=== PATIENT | female | born 1970 | race Caucasian/White ===

== ENCOUNTER 2023-06-29 21:22 | Inpatient (IN) | payer SELFPAY ==
[~2023-06-29] VITALS: Ht 165.1 cm; Wt 172.8 kg
[2023-06-30] MEDS ORDERED: KETOROLAC 60MG/2ML VIAL IM STA (01:00)
[2023-06-30] MEDS ORDERED: BACITRACIN ZINC OINT UDPKT TOP ONE (01:15)
[2023-06-30] MEDS ORDERED: T3 PO (03:54)
[2023-06-30] MEDS ORDERED: NAPR-681 PO (03:54)
[2023-06-30 08:09] LABS: CHLORIDE 109 mEq/L (98-107); INDEX HEMOLYSI 1 (1-3); INDEX ICTERIC 1 (1-4); INDEX LIPEMIC 1 (1-3); POTASSIUM 3.6 mEq/L (3.5-5.1); SODIUM 139 mEq/L (136-145)
[2023-06-30 08:21] LABS: ALANINE AMINOTRANSFERASE 32 IU/L (13-61); ALBUMIN 3.8 g/dL (3.4-5.0); ASPARTATE AMINOTRANSFERASE 20 IU/L (15-37); BILIRUBIN TOTAL 0.6 mg/dL (0.1-1.0); CALCIUM 8.9 mg/dL (8.5-10.1); CARBON DIOXIDE 25 mEq/L (21-32); GLUCOSE 145 mg/dL (70-105); PROTEIN TOTAL 7.6 g/dL (6.0-8.3); UREA NITROGEN BLOOD 24 mg/dL (7-21)
[2023-06-30 08:27] LABS: BASOPHILS % 0.6 % (0.0-2.0); EOSINOPHILS % 2.6 % (0.0-5.0); HEMATOCRIT. 40.8 % (36.0-48.0); HEMOGLOBIN. 13.5 g/dL (12.0-16.0); LYMPHOCYTES % 28.6 % (20.0-50.0); MEAN CORPUSCULAR HEMOGLOBIN 28.1 pg (28.0-32.0); MEAN CORPUSCULAR HGB CONC 33.2 g/dL (31.0-37.0); MEAN CORPUSCULAR VOLUME 84.6 fL (81.0-99.0); MEAN PLATELET VOLUME 9.6 fl (7.4-10.4); MONOCYTES % 7.6 % (2.0-8.0); NEUTROPHILS % 60.6 % (40.0-76.0); PLATELET 236 x1000/uL (130-400); RED BLOOD CELL COUNT 4.82 mill/uL (4.2-5.4); RED CELL DISTRIBUTION WIDTH 14.4 % (11.6-14.6); WHITE BLOOD COUNT 8.3 x1000/uL (4.5-11.0)
[2023-06-30 08:31] LABS: PROTHROMBIN TIME 10.9 sec (9.6-11.0)
[2023-06-30 13:30] VITALS: BP 156/96; PULSE 78; RESP 18; TEMP 97.5; TEMP 97.9
[2023-06-30] MEDS ORDERED: LOSA50TA41 MT (14:05)
[2023-06-30] MEDS ORDERED: LEVO200T8 MT (14:05)
[2023-06-30] MEDS ORDERED: POTA-205 PO (14:05)
[2023-06-30] MEDS ORDERED: PANT40TA51 MT (14:13)
[2023-06-30] MEDS ORDERED: PRAV80TA21 MT (14:13)
[2023-06-30] MEDS ORDERED: MULT-1102 MT (14:13)
[2023-06-30] MEDS ORDERED: METF-817 MT (14:13)
[2023-06-30] MEDS ORDERED: FLUO40CA49 MT (14:13)
[2023-06-30] MEDS ORDERED: MONT-39 MT (14:13)
[2023-06-30] MEDS ORDERED: FURO40TA5 MT (14:13)
[2023-06-30] MEDS ORDERED: METO25TA6 MT (14:13)
[2023-06-30 16:00] VITALS: BP 151/94; PULSE 74; RESP 18; TEMP 98.1
[2023-06-30] MEDS ORDERED: CLONIDINE 0.1MG TABLET PO PRN (18:30)
[2023-06-30] MEDS ORDERED: MAGNESIUM/ALUMINUM HYDROXIDE/SIMETHICONE 30ML UDC PO PRN (18:30)
[2023-06-30] MEDS ORDERED: GUAIFENESIN 200MG/10ML SUGAR FREE UDC PO PRN (18:30)
[2023-06-30] MEDS ORDERED: ONDANSETRON HCL 4MG/2ML INJ IV PRN (18:30)
[2023-06-30] MEDS ORDERED: DOCUSATE SODIUM 100MG CAPSULE PO PRN (18:30)
[2023-06-30] MEDS ORDERED: IPRATROPIUM/ALBUTEROL 0.5-3(2.5)MG/3ML NEB HHN PRN (18:30)
[2023-06-30] MEDS ORDERED: DIPHENHYDRAMINE 50MG/ML VIAL IV PRN (18:30)
[2023-06-30] MEDS ORDERED: ACETAMINOPHEN 325MG TABLET PO PRN ×2 (18:30)
[2023-06-30] MEDS ORDERED: NA PHOS,M-B/NA PHOS,DI-BA ENEMA 118ML PR PRN (18:30)
[2023-06-30] MEDS ORDERED: LORAZEPAM 0.5MG TABLET PO PRN (18:30)
[2023-06-30 18:36] VITALS: BP 159/94; PULSE 71; TEMP 97.5; O2SAT 97
[2023-06-30] MEDS ORDERED: ENOXAPARIN 40MG/0.4ML SYR SUBCUT SCH (19:30)
== END 2023-06-30 19:30 | disposition home or self-care (01) | DRG 115 ==
LOC: ER 21:22 → 4WST 06-30 05:36
PROVIDERS: ADMIT Internal Medicine; ATTEND Internal Medicine
DX: S09.90XA Unspecified injury of head, initial encounter (principal); S81.011A Laceration without foreign body, right knee, initial encounter; E03.9 Hypothyroidism, unspecified; S00.93XA Contusion of unspecified part of head, initial encounter; I10 Essential (primary) hypertension; J45.909 Unspecified asthma, uncomplicated; S51.012A Laceration without foreign body of left elbow, initial encounter; S51.011A Laceration without foreign body of right elbow, initial encounter; S81.012A Laceration without foreign body, left knee, initial encounter; M17.12 Unilateral primary osteoarthritis, left knee; E66.9 Obesity, unspecified; Z68.44 Body mass index [BMI] 60.0-69.9, adult; V49.88XA Car occupant (driver) (passenger) injured in other specified transport accidents, initial encounter; Y93.89 Activity, other specified; Y92.89 Other specified places as the place of occurrence of the external cause; Y99.8 Other external cause status
CPT/HCPCS: 36415; 71046; 73060; 73562; 80053; 85025; 86850; 86900; 99285; J1885